=== PATIENT | male | born 1990 | race Caucasian/White ===

== ENCOUNTER 2020-03-26 17:09 | Emergency (ER) | payer OTHER ==
[~2020-03-26] VITALS: Ht 162.6 cm; Wt 61.7 kg
[2020-03-26 18:13] LABS: ABSOLUTE BASOPHILS 0.1 thou/uL (0.0-0.2); ABSOLUTE EOSINOPHILS 0.4 thou/uL (0.0-0.7); ABSOLUTE LYMPHOCYTES 2.9 thou/uL (0.8-5.3); ABSOLUTE NEUTROPHILS 3.1 thou/uL (1.6-8.1); BASOPHILS 1.2 %; EOSINOPHILS 4.8 %; HEMATOCRIT 40.3 % (42.0-52.0); LYMPHOCYTES 39.1 %; MCH 32.9 pg (26.0-34.0); MCHC 34.8 g/dL (28.0-37.0); MCV 94.7 fL (80.0-100.0); MONOCYTES 13.3 %; MPV 8.3 fl. (7.2-11.1); NUCLEATED RBCS 0 /100WBC; PLATELET COUNT* 296 thou/uL (150-400); POLYS 41.6 %; RBC 4.25 mil/uL (4.50-6.00); RDW-CV 13.4 % (10.5-14.5); WBC 7.4 thou/uL (4.0-11.0)
[2020-03-26 18:23] LABS: CALCIUM 8.8 mg/dL (8.5-10.1); POTASSIUM 4.9 mmol/L (3.5-5.1)
[2020-03-26 18:27] LABS: ALBUMIN 3.9 g/dL (3.4-5.0); TOTAL BILIRUBIN 0.9 mg/dL (<0.1-1.0); TOTAL PROTEIN 7.7 g/dL (6.4-8.2)
[2020-03-26] MEDS ORDERED: MEDROLDOSEPACK PO (19:27)
[2020-03-26] MEDS ORDERED: ZPAK PO (19:27)
[2020-03-26] MEDS ORDERED: PROAIR HFA8.5 GM INH (19:27)
[2020-03-26 19:40] VITALS: BP 114/66
--- NOTE | 2020-03-27 15:26 | EKG ---
[place] [address] ELECTROCARDIOGRAM REPORT Name: MAGEN FIERRO Poonam Room: [facility]#: [id number] Admission: 03/26/20 Attend Phys: Discharge: 03/26/20 Date of : 89 Date of Service: 03/26/20 1720 Report #: [id number] THIS REPORT FOR: //name// [facility] ED Test Date: 2020-03-26 Test Time: 17:20:26 Pat Name: MAGEN FIERRO Department: Room: Gender: Manager Drug: [facility] : 1990 Requested By: Tanisha Chau Order Number: [id number] Pernell MD: Alexis Marr Measurements Intervals Carter Rate: 77 P: 41 OH: 138 QRS: 43 QRSD: 93 T: 56 QT: 370 QTc: 419 Interpretive Statements Sinus rhythm Baseline wander in lead(s) III,aVL No previous ECG available for comparison Electronically Signed On 03-27-2020 15:24:46 CDT by Alexis Marr [email or web address] <ELECTRONICALLY SIGNED> By: Alexis Marr MD, [facility] 03/27/20 1524 1720 19 Alexis Marr MD, [facility] /EPI
== END 2020-03-26 19:40 | disposition home or self-care (01) ==
LOC: M.ERS 17:09
PROVIDERS: Physician Assistant
DX: J22 Unspecified acute lower respiratory infection (principal); F17.210 Nicotine dependence, cigarettes, uncomplicated; R00.2 Palpitations; M54.9 Dorsalgia, unspecified